=== PATIENT | female | born 1975 | race Caucasian/White ===

== ENCOUNTER 2020-11-10 13:32 | Emergency (ER) | payer BC ==
--- NOTE | 2020-11-10 13:46 | EDM.PDOC ---
ED HPI GENERAL MEDICAL PROBLEM - General Chief Complaint: Chest Pain Stated Complaint: CHEST PAIN SOB COUGHING Time Seen by Provider: 11/10/20 13:39 Source of Information: Reports: Patient History Limitations: Reports: No Limitations - History of Present Illness INITIAL COMMENTS - FREE TEXT/NARRATIVE: 45-year-old female past medical history fibromyalgia presents for cough, shor tness of breath, chest pain. Patient states she first noted chest pains roughly 2 weeks ago. It is in her diffuse anterior chest and does radiate into her neck. It is waxing and waning and she does not recall any inciting events, nothing makes it better or worse. Roughly 1 week ago she developed a nonproductive cough. She denies fevers, body aches, sore throat, nausea, vomiting. She had Covid last year and has had her first shot of vaccination. sternal Pain Score (Numeric/FACES): 2 - Related Data Allergies Allergy/AdvReac Type Severity Reaction Status Date / Time duloxetine HCl Allergy Seizure Verified 11/10/20 13:45 [From Cymbalta] pregabalin [From Lyrica] Allergy Seizure Verified 11/10/20 13:45 Home Meds: Home Meds Cholecalciferol (Vitamin D3) [Vitamin D3] 1 tab PO DAILY 08/06/15 [History] Diclofenac Sodium [Voltaren 1% Gel] 1 applic TOP ASDIRECTED PRN 08/06/15 [H istory] Docusate Sodium [Colace] 1 tab PO BID PRN 08/06/15 [History] Gabapentin [Neurontin] 3 tab PO BID 08/06/15 [History] Magnesium Amino Acid Chelate 200 mg PO DAILY 08/06/15 [History] Galva-3 Fatty Acids [Fish Oil] 1 tab PO DAILY 08/06/15 [History] Pantoprazole Sodium [Protonix] 40 mg PO BID 08/06/15 [History] Pantothenic Acid/Aloe Vera [[place]-Gel] 500 mg PO DAILY 08/06/15 [History] Ranitidine HCl 150 mg PO BID PRN 08/06/15 [History] tiZANidine [Zanaflex] 0.25 - 0.5 tab PO ASDIRECTED PRN 08/19/15 [History] Acetaminophen/oxyCODONE [Percocet 325-5 MG] 1 tab PO Q4H PRN #30 tablet 08/25/15 [Rx] Doxycycline [Vibramycin] 100 mg PO BID 7 Days #14 cap 03/26/19 [Rx] Azithromycin 250 mg PO DAILY 5 Days #6 tablet 11/10/20 [Rx] Past Medical History HEENT History: Reports: None Cardiovascular History: Reports: None Respiratory History: Reports: None Gastrointestinal History: Reports: GERD, Irritable Bowel Syndrome [employer] History: Reports: , Spontaneous Musculoskeletal History: Reports: Arthritis, Fibromyalgia Neurological History: Reports: Seizure Other Neuro History: hx grand mal seizures ( last time 3 years ago supp. due to lyrica and or cymbalta combination) Off meds now. Psychiatric History: Reports: Anxiety, Depression, PTSD Endocrine/Metabolic History: Reports: Obesity/BMI 30+ Hematologic History: Reports: Anemia Immunologic History: Reports: None Oncologic (Cancer) History: Reports: None Dermatologic History: Reports: None - Infectious Disease History Infectious Disease History: Reports: Chicken Pox - Past Surgical History Head Surgeries/Procedures: Reports: None GI Surgical History: Reports: Colonoscopy Female Surgical History: Reports: Hysterectomy ED ROS GENERAL - Review of Systems Review Of Systems: Comprehensive ROS is negative, except as noted in HPI. ED EXAM, GENERAL - Physical Exam Exam: See Below Exam Limited By: No Limitations General Appearance: Alert, WD/WN, No Apparent Distress Ears: Hearing Grossly Normal Throat/Mouth: Normal Voice, No Airway Compromise Head: Atraumatic, Normocephalic Neck: Normal Inspection Respiratory/Chest: No Respiratory Distress, Lungs Clear, Normal Breath Sounds, No Accessory Muscle Use Cardiovascular: Normal Peripheral Pulses, Regular Rate, Rhythm, No Edema Extremities: Normal Inspection Neurological: Alert, Normal Cognition, Normal Gait Psychiatric: Normal Affect, Normal Mood Skin Exam: Warm, Dry, Intact, Normal Color #1 Interpretation EKG Date: 11/10/20 Time: 13:41 Rhythm: NSR Rate (Beats/Min): 75 [place]: Normal P-Wave: Present QRS: Normal ST-T: Normal QT: Normal MS/PQ Interval: 167 Comparison: NA - No Prior EKG EKG Interpretation Comments: normal EKG Course - Vital Signs Last Recorded V/S: Last Vital Signs Temp 98.3 F 11/10/20 14:50 Pulse 64 11/10/20 14:50 Resp 18 11/10/20 14:50 BP 117/62 11/10/20 14:50 Pulse Ox 95 11/10/20 14:50 - Orders/Labs/Meds Orders: Active Orders 24 hr Category Date Time Status Saline Lock Insert [OM.PC] Stat Oth 11/10/20 13:44 Ordered Labs: Laboratory Tests 11/10/20 11/10/20 11/10/20 Range/Units 13:38 13:38 13:38 WBC 7.86 (4.0-11.0) K/uL RBC 5.32 (4.30-5.90) M/uL Hgb 15.7 (12.0-16.0) g/dL Hct 44.4 (36.0-46.0) % MCV 83.5 (80.0-98.0) fL MCH 29.5 (27.0-32.0) pg MCHC 35.4 (31.0-37.0) g/dL RDW Std Deviation 39.8 (28.0-62.0) fl RDW Coeff of Bryson 13 (11.0-15.0) % Plt Count 214 (150-400) K/uL MPV 11.20 (7.40-12.00) fL Neut % (Auto) 65.3 (48.0-80.0) % Lymph % (Auto) 27.7 (16.0-40.0) % [place] % (Auto) 4.1 (0.0-15.0) % Eos % (Auto) 2.5 (0.0-7.0) % Baso % (Auto) 0.4 (0.0-1.5) % Neut # (Auto) 5.1 (1.4-5.7) K/uL Lymph # (Auto) 2.2 (0.6-2.4) K/uL [place] # (Auto) 0.3 (0.0-0.8) K/uL Eos # (Auto) 0.2 (0.0-0.7) K/uL Baso # (Auto) 0.0 (0.0-0.1) K/uL Nucleated RBC % 0.0 /100WBC Nucleated RBCs # 0 K/uL INR 1.00 APTT 26.6 (18.6-31.3) SEC D-Dimer, Quantitative 0.55 H (0.0-0.50) mg/L FEU Sodium 139 (136-145) mmol/L Potassium 4.1 (3.5-5.1) mmol/L Chloride 106 (98-107) mmol/L Carbon Dioxide 24.1 (21.0-32.0) mmol/L BUN 9 (7.0-18.0) mg/dL Creatinine 0.8 (0.6-1.0) mg/dL Est Cr Clr Drug Dosing 72.69 mL/min Estimated GFR (MDRD) > 60.0 ml/min Glucose 139 H (74-106) mg/dL Calcium 9.0 (8.5-10.1) mg/dL Total Bilirubin 0.5 (0.2-1.0) mg/dL AST 17 (15-37) IU/L ALT 26 (14-63) IU/L Alkaline Phosphatase 79 (46-116) U/L Troponin I < 0.050 (0.000-0.056) ng/mL Total Protein 7.5 (6.4-8.2) g/dL Albumin 4.2 (3.4-5.0) g/dL Globulin 3.3 (2.6-4.0) g/dL Albumin/Globulin Ratio 1.3 (0.9-1.6) SARS-CoV-2 RNA (EDUARDO) (NEGATIVE) 11/10/20 Range/Units 14:03 WBC (4.0-11.0) K/uL RBC (4.30-5.90) M/uL Hgb (12.0-16.0) g/dL Hct (36.0-46.0) % MCV (80.0-98.0) fL MCH (27.0-32.0) pg MCHC (31.0-37.0) g/dL RDW Std Deviation (28.0-62.0) fl RDW Coeff of Bryson (11.0-15.0) % Plt Count (150-400) K/uL MPV (7.40-12.00) fL Neut % (Auto) (48.0-80.0) % Lymph % (Auto) (16.0-40.0) % [place] % (Auto) (0.0-15.0) % Eos % (Auto) (0.0-7.0) % Baso % (Auto) (0.0-1.5) % Neut # (Auto) (1.4-5.7) K/uL Lymph # (Auto) (0.6-2.4) K/uL [place] # (Auto) (0.0-0.8) K/uL Eos # (Auto) (0.0-0.7) K/uL Baso # (Auto) (0.0-0.1) K/uL Nucleated RBC % /100WBC Nucleated RBCs # K/uL INR APTT (18.6-31.3) SEC D-Dimer, Quantitative (0.0-0.50) mg/L FEU Sodium (136-145) mmol/L Potassium (3.5-5.1) mmol/L Chloride (98-107) mmol/L Carbon Dioxide (21.0-32.0) mmol/L BUN (7.0-18.0) mg/dL Creatinine (0.6-1.0) mg/dL Est Cr Clr Drug Dosing mL/min Estimated GFR (MDRD) ml/min Glucose (74-106) mg/dL Calcium (8.5-10.1) mg/dL Total Bilirubin (0.2-1.0) mg/dL AST (15-37) IU/L ALT (14-63) IU/L Alkaline Phosphatase (46-116) U/L Troponin I (0.000-0.056) ng/mL Total Protein (6.4-8.2) g/dL Albumin (3.4-5.0) g/dL Globulin (2.6-4.0) g/dL Albumin/Globulin Ratio (0.9-1.6) SARS-CoV-2 RNA (EDUARDO) NEGATIVE (NEGATIVE) Meds: Medications Discontinued Medications Generic Name Dose Route Start Last Admin Trade Name Freq PRN Reason Stop Dose Admin Aspirin 324 mg 11/10/20 13:51 11/10/20 14:04 Aspirin 81 Mg Tab.Chew PO 11/10/20 13:52 324 mg ONETIME ONE Administration Iopamidol 100 ml 11/10/20 16:27 11/10/20 16:27 Iopamidol 755 Mg/Ml 500 Ml Multipack Bottle IVPUSH 11/10/20 16:28 100 ml ONETIME STA Administration - Re-Assessments/Exams Free Text/Narrative Re-Assessment/Exam: 11/10/20 15:41 D-dimer is mildly elevated. Will get CT imaging to rule out pulmonary embolism as cause of patient's chest pain shortness of breath. 11/10/20 17:30 CT scan shows evidence of bibasilar atelectasis. Will treat for possible community-acquired pneumonia with azithromycin considering patient's symptoms. Departure - Departure Time of Disposition: 17:30 Disposition: Home, Self-Care 01 Condition: Good Clinical Impression: Bronchitis - Discharge Information Instructions: Acute Bronchitis, Adult Referrals: PCP,None [Primary Care Provider] - Forms: ED Department Discharge Additional Instructions: The following information is given to patients seen in the emergency department who are being discharged to home. This information is to outline your options for follow-up care. We provide all patients seen in our emergency department with a follow-up referral. The need for follow-up, as well as the timing and circumstances, are variable depending upon the specifics of your emergency department visit. If you don't have a primary care physician on staff, we will provide you with a referral. We always advise you to contact your personal physician following an emergency department visit to inform them of the circumstance of the visit and for follow-up with them and/or the need for any referrals to a consulting specialist. The emergency department will also refer you to a specialist when appropriate. This referral assures that you have the opportunity for follow-up care with a specialist. All of these measure are taken in an effort to provide you with optimal care, which includes your follow-up. Under all circumstances we always encourage you to contact your private physician who remains a resource for coordinating your care. When calling for follow-up care, please make the office aware that this follow-up is from your recent emergency room visit. If for any reason you are refused follow-up, please contact the [facility] Emergency Department at and asked to speak to the emergency department charge nurse. Please follow up with your primary care physician. If you do not have a primary care physician, see below: [facility] [address] [place] [id number] [id number] [facility] [address] [place] [id number] Sepsis Event Note (ED) - Focused Exam Vital Signs: Vital Signs Temp Pulse Resp BP Pulse Ox 11/10/20 14:50 98.3 F 64 18 117/62 95 11/10/20 14:18 68 18 140/61 95 11/10/20 13:42 98.1 F 75 18 147/74 H 95 - My Orders Last 24 Hours: My Active Orders 11/10/20 13:44 Saline Lock Insert [OM.PC] Stat - Assessment/Plan Last 24 Hours: My Active Orders 11/10/20 13:44 Saline Lock Insert [OM.PC] Stat
[2020-11-10] MEDS ORDERED: Aspirin 81 MG Tab.Chew PO ONE (13:51)
--- NOTE | 2020-11-10 14:18 | CR ---
INDICATION: Shortness of breath, chest pain TECHNIQUE: Chest radiograph 1 view COMPARISON: None FINDINGS: Mediastinum: The mediastinum is normal in appearance. The heart silhouette is normal in size and morphology. Lung: Both lungs are unremarkable in appearance. No sign of pleural effusion seen. No pneumothorax is identified. Bone and Soft tissue: Unremarkable for age. IMPRESSION: 1. No acute cardiopulmonary disease is seen. Dictated by: Tony Argueta MD @ 11/10/2020 14:16:59 (Electronically Signed)
[2020-11-10 15:29] LABS: BLOOD UREA NITROGEN,BUN 9 mg/dL (7.0-18.0); CARBON DIOXIDE,CO2 24.1 mmol/L (21.0-32.0); CHLORIDE,CL 106 mmol/L (98-107); GLUCOSE RANDOM 139 mg/dL (74-106); POTASSIUM,K 4.1 mmol/L (3.5-5.1); SODIUM,NA 139 mmol/L (136-145)
[2020-11-10] MEDS ORDERED: Iopamidol 755 MG/ML 500 ML Multipack Bottle IVPUSH STA (16:27)
--- NOTE | 2020-11-10 17:26 | CT ---
INDICATION: Elevated D-dimer, cough, chest pain. COMPARISON: Chest radiograph 11/10/2020. TECHNIQUE: CT of the chest with 100 cc of Isovue 370 IV contrast. Coronal and sagittal reconstructions. 3D post processing was performed. FINDINGS: Normal heart size. Normal caliber thoracic aorta and central pulmonary arteries. Negative for acute pulmonary embolism. No pericardial effusion. Mildly prominent bilateral hilar lymph nodes may be reactive. No lymphadenopathy by size criteria. No focal consolidation, pleural effusion, pneumothorax. Hazy ground-glass opacities in the lower lobes bilaterally may be infectious/inflammatory versus atelectasis. 2 mm noncalcified pulmonary nodule in the anterior right upper lobe (series 402, image 64). 5 mm noncalcified pulmonary nodule in the left lung apex (image 25). No central endobronchial lesion. Mild diffuse bronchial wall thickening. The thyroid gland is normal in appearance. The visualized upper abdomen is unremarkable. Small sclerotic lesion in the superior aspect of the manubrium. The bones are otherwise unremarkable. IMPRESSION: 1. Negative for acute pulmonary embolism. 2. Hazy ground-glass opacities in the lower lobes bilaterally may be infectious/inflammatory versus atelectasis. There is also mild diffuse bronchial wall thickening. 3. Two small noncalcified pulmonary nodules measuring up to 5 mm. Please see follow-up guidelines below. [employer] GUID[employer]IN[employer] - SOLID NODULES: : MULTIPLE LOW RISK - nodule less than 6 mm: No routine follow-up. - nodule 6-8 mm: CT at 3-6 months, then consider CT at 18-24 months. - nodule greater than 8 mm: CT at 3-6 months, then consider CT at 18-24 months. MULTIPLE HIGH RISK - nodule less than 6 mm: Optional CT at 12 months. - nodule 6-8 mm: CT at 3-6 months, then at 18-24 months. - nodule greater than 8 mm: CT at 3-6 months, then at 18-24 months. Please note that all CT scans at this facility use dose modulation, iterative reconstruction, and/or weight-based dosing when appropriate to reduce radiation dose to as low as reasonably achievable. Dictated by Beatris Sherwood MD @ 11/10/2020 5:24:43 PM (Electronically Signed)
[2020-11-10 20:13] VITALS: BP 123/74; PULSE 82
== END 2020-11-10 17:43 | disposition home or self-care (01) ==
LOC: MW.ED 13:32
DX: J40 Bronchitis, not specified as acute or chronic (principal); K21.9 Gastro-esophageal reflux disease without esophagitis; E66.9 Obesity, unspecified; Z68.30 Body mass index [BMI] 30.0-30.9, adult; Z79.899 Other long term (current) drug therapy; Z20.822 Contact with and (suspected) exposure to COVID-19; Z88.8 Allergy status to other drugs, medicaments and biological substances
CPT/HCPCS: 36415; 71045; 71275; 80053; 84484; 85025; 85379; 85610; 85730; 87635; 93005; 99285; A9270; Q9967; U0002